=== PATIENT | female | born 1965 | race Caucasian/White ===

== ENCOUNTER 2017-04-24 09:06 | Observation (INO) | payer BC, SELFPAY ==
--- NOTE | 2017-04-19 16:44 | EKG12_ITS ---
Test Reason : PREOP Blood Pressure : / mmHG Vent. Rate : 066 BPM Atrial Rate : 066 BPM P-R Int : 168 ms QRS Dur : 080 ms QT Int : 408 ms P-R-T Axes : 061 032 041 degrees QTc Int : 427 ms Sinus rhythm with occasional Premature ventricular complexes Possible Left atrial enlargement Borderline ECG Confirmed by JACOB MIRANDA, CASSANDRA ([id number]), script editor ROSCOE CORTES ([id number]) on 04/23/2017 2:55:50 PM Referred By: Justo Menjivar Confirmed By:CASSANDRA JAMES MD
[2017-04-24] VITALS (12 sets, daily range): BP systolic 144–164; BP diastolic 81–103; PULSE 90–122; RESP 12–18; TEMP 36.3–37.5; O2SAT 93–99; BMI 23.2
--- NOTE | 2017-04-24 | IMM_PTH ---
PATIENT: DHIRAJ CORTES LOC: MS2 U#:[id number] AGE/SX: 51/F [place] [facility] [place] RE04/24/[address]: Dr. Justo Menjivar MD : 1965 BED: 1 DIS: 04/24/2017 SPEC #: [id number] RECD: 04/26/17 12:43 STATUS: NICOLA REQ #: [id number] DUSTY: 04/24/17 00:[address]: Justo Menjivar DEPT: IMMUNOHISTOCHEMISTRY RECD BY: Nicole Riggins ENTERED: 04/26/17 12:44 SP TYPE: IMMUNO OTHR DR: Dr. Kirill William MD Tissues: Thyroid gland, NOS Procedures: CK19 (add) GAL-3 (add) HBME (add) CD56 (initial) PHYSICIAN & INSTITUTION [place] [id number] SPECIMEN INFORMATION: Tissue Source: Thyroid Clinical Info: Follicular neoplasm of thyroid Specimen Number: [id number] #7 CPT code: 26072, 41476 x3 METHODOLOGY: Deparaffinized sections of prefer/formalin-fixed tissue or PAP/DQ stained slides are incubated with monoclonal/polyclonal antibodies/oligonucleotide probes. Localization is made via biotin free immunoperoxidase method. Appropriate controls are performed and reacted as expected. Results on target cell population are indicated in the following table: RESULTS: ANTIBODY / CLONE RESULT Block 7 CD56 (123C3.D5) positive HBME1 (HBME-1) positive CK19 (A53-B/A2.26) positive GAL3 (9C4) positive These tests were developed and their performance characteristics determined by [facility]. They may not have been cleared or approved by the U.S. Food and Drug Administration. The FDA has determined that such clearance or approval is not necessary. INTERPRETATION: Thyroid, thyroidectomy: Consistent with follicular adenoma. AM:mendez 05/03/17 Case has been reviewed in consultation with Dr. Rodriguez who concurs with the above diagnosis. IDC:[email or web address]
--- NOTE | 2017-04-24 | THYROID_PTH ---
PATIENT: DHIRAJ CORTES LOC: MS2 U#:[id number] AGE/SX: 51/F [place] [facility] [place] RE04/24/[address]: Dr. Justo Menjivar MD : 1965 BED: 1 DIS: 04/24/2017 SPEC #: [id number] RECD: 04/24/17 14:45 STATUS: NICOLA KIMBLEMarissa #: [id number] DUSTY: 04/24/17 00:[address]: Justo Menjivar DEPT: SURGICAL PATHOLOGY RECD BY: Curtis Prather ENTERED: 04/24/17 14:46 SP TYPE: THYROID OTHR DR: Dr. Kirill William MD Tissues: Thyroid gland, NOS Procedures: Surgery Specimen Level V HEADER OPERATION: Thyroidectomy, total PRE-OP DIAGNOSIS: Follicular neoplasm of thyroid TISSUE SUBMITTED: Total thyroid ? suture in anterior-superior aspect right lobe MICROSCOPIC DIAGNOSIS Thyroid, total thyroidectomy: Follicular adenoma (right lobe). Colloid nodules. Fragments of benign parathyroid tissue. No evidence of malignancy. AM:mendez 05/03/17 COMMENT Immunohistochemistry ([id number]) supports the above diagnosis. This case was reviewed in consultation with Dr. Rivas of [facility]. His complete report is viewable in patient?s EMR. Microscopic sections show a follicular neoplasm consistent with a follicular adenoma with a trabecular growth pattern. There is no evidence of vascular or capsular invasion. Clinical correlation is suggested. Case has been reviewed in consultation with Dr. Rodriguez who concurs with the above diagnosis. IDC:[email or web address] MICROSCOPIC DESCRIPTION Slides are reviewed. GROSS DESCRIPTION Received in fixative is one container labeled with the patient's name and designated total thyroid ? suture in anterior-superior aspect right lobe. The specimen consists of a total thyroidectomy specimen weighing 17.4 gm. No external parathyroid tissue is identified. The right thyroid lobe measures 5.5 x 2.5 x 2.8 cm and left thyroid lobe measures 3.5 x 1.5 x 1.5 cm and the isthmus measures 0.7 x 0.5 x 0.3 cm. Also present in the container is a detached piece of yellow adipose tissue measuring 1.2 x 1 x 0.5 cm. No obvious lymph node tissue is identified in this piece of tissue. The specimen is inked as follows: posterior surface right lobe, left lobe and isthmus ? black, anterior surface right lobe ? blue, isthmus ? yellow and left lobe ? green. Serial sections of the right lobe reveal a worrell, solid nodule occupying most of the right lobe measuring 3 x 2 x 1.5 cm. Sections of the left lobe and isthmus do not reveal any mass lesion. The entire specimen is submitted in 15 cassettes as follows: 1 ? detached piece of tissue, 2 ? isthmus, 3-11 ? right lobe (3 containing most superior portion and 11 containing most inferior portion), 1215 ? left lobe (12 containing most superior portion and 15 containing most inferior portion). / ABDULLAHI:mendez 04/25/17 TC:1 CPT: 41027
[2017-04-24 06:26] LABS: Internal QC Validated? YES +Cl - CLEAR BKGD; Pregnancy, Urine Negative Negative
--- NOTE | 2017-04-24 07:11 | PCM.DC.GS ---
Discharge Diet: Light diet - advance as tolerated - if you have questions about your diet instructions, please talk to you doctor. Discharge Activity: May Not Drive - for 1 week or while taking narcotic pain medicine. May shower in (days): 1 Lifting Restrictions: 10 pounds Call your doctor if your incision/area has: Continuous Slow Oozing, Sudden Increased Bleeding, Increased Pain/ Swelling, Increased Redness, Foul Smelling Discharge Call your doctor if you observe: Fever of 101 or Higher Suture Line Care: Avoid Pulling/Pushing, Avoid Pinching/Bending Additional Dressing/Incision Instructions:: Dressings may be used as needed to protect the incision from clothing Allergies/Adverse Reactions: Allergies No Known Allergies Allergy (Verified 04/17/17 15:27) Medications to take at Discharge citalopram 20 mg tablet 20 mg PO QDAY 04/03/17 sumatriptan 50 mg tablet 50 mg PO ONCE PRN 04/03/17 Hydrocodone Bitart/Apap 5-325 [[place] 5MG-325MG] 1 tablet PO Q6H PRN PRN #10 tablet 04/24/17 Levothyroxine [Synthroid] 100 mcg PO DAILY #90 tab 04/24/17 The following prescriptions were given: Hydrocodone Bitart/Apap 5-325 [[place] 5MG-325MG] 1 tablet PO Q6H PRN PRN #10 tablet PRN Reason: Pain Levothyroxine [Synthroid] 100 mcg PO DAILY #90 tab Primary Care Physician: Kirill William [Primary Care Provider] - Please Follow Up With: Justo Menjivar MD - [phone] When: Call to make an appointment to be seen in about 10 days.
[2017-04-24] MEDS: Bupivacaine Mpf 0.5% 30 ML VIAL (08:58)
--- NOTE | 2017-04-24 09:06 | OP.PCM_ITS ---
Problem List (1) Thyroid nodule Status: Acute Report of Operation Date of Procedure: 04/24/17 Pre-Operative Diagnosis: Suspicious follicular/papillary lesion right thyroid Post-Operative Diagnosis: Same Surgery/Procedure Performed:: Total thyroidectomy Description of Surgical Findings:: Timeout and informed consent was obtained. 51-year-old female was taken the operating room. She was placed upon the table. She underwent general endotracheal intubation and anesthesia. His shoulder roll was placed. Neck was sterilely prepped and draped in routine fashion. A transverse suprasternal incision was created sharp dissection carried down through the substance tissue platysmal flaps are raised sternal strap muscles were incised vertically I dressed the left lobe initially the middle thyroidal vein was secured with harmonic scalpel and the inferior pole was carefully dissected free the inferior parathyroid identified having then been able to elevate the thyroid and then address the superior pole on the left secured the superior pole vessels with harmonic scalpel hemoclips were used where indicated the gland was rotated anteriorly both the inferior end. Superior parathyroid were absolutely identified. The course of the recurrent laryngeal nerve identified. Dissection was performed in the posterior aspect of the thyroid great care was taken in transecting the ligament of Maurice as the recurrent nerve was quite close. Did sharp dissection with scalpel dissection to the final release. The gland was then released from the anterior surface of the trachea with harmonic scalpel. Now I addressed the right lobe which much larger than the left. There appear to be a dominant nodule mostly in the mid section. I dressed the superior pole initially on the right. Tediously and carefully the superior pole vessels were identified and secured. The middle thyroidal vein was secured. Then I addressed the inferior pole vessels. The superior and inferior parathyroid on the right were also cleanly identified and carefully preserved. The recurrent ventral nerve was identified and protected. The gland was dissected off the ligament of [place] and anterior surface of the trachea. There did not appear to be any muscular or soft tissue invasion. Completely released the gland I carefully inspected both sides of the neck were able to see L4 parathyroids recurrent nerve. By visual inspection careful blunt dissection and palpation I could not detect any enlarged lymph nodes. I did take some inferior pre-tracheal tissue in the region of the thymus with harmonic scalpel and submitted that with a specimen as well. Hemostasis was intact. Fibular was placed in each side of the neck hemostasis was nicely intact the strap muscles were approximated vertically with interrupted 3-0 Vicryl. The platysma was proximally the same. Skin edges present interrupted 5 -0 Vicryl subdermal stitches. The rani-incisional area was anesthetized with 0.5% Marcaine a total of 15 cc was used. Dermabond was applied followed by Telfa and tape dressings. Sponge instrument and needle counts were reported to the surgeon to be correct. Blood loss minimal. Specimens include a thyroid plus some treatment thyroidal fibrofatty tissue. Drains none. Blood loss very minimal. Justo Menjivar M.D., F.A.C.S.
[2017-04-24] MEDS: Lactated Ringers 1,000 ML 30 ML IV (10:36)
[2017-04-24] MEDS: Calcium Carbonate 500 MG Tablet 1000 MG PO ×2 (12:11→17:07)
[2017-04-24] MEDS: Citalopram 20 MG Tablet PO (12:11)
[2017-04-24] MEDS: HYDROcodone Bitartrate/Apap 5/325 Tablet PO (17:07)
--- NOTE | 2017-04-24 17:32 | PCM.PN.BLA ---
Progress Note Pt without complaint Neck supple [place] neg Will discharge home with office followup
== END 2017-04-24 18:17 | disposition home or self-care (01) ==
LOC: SDC 12:23 → MS2 12:23
PROVIDERS: Anesthesiology; Admitting Provider Surgery; Family Provider Family Medicine; PCP Family Medicine; Visit Provider Surgery
PROC: (CPT 60240; principal; 2017-04-24 07:00)
DX: D34 Benign neoplasm of thyroid gland (principal); E04.1 Nontoxic single thyroid nodule; K21.9 Gastro-esophageal reflux disease without esophagitis; F32.9 Major depressive disorder, single episode, unspecified; G43.909 Migraine, unspecified, not intractable, without status migrainosus; Z87.891 Personal history of nicotine dependence; Z79.899 Other long term (current) drug therapy
CPT/HCPCS: 60240; 81025; 88307; 88341; 88342; 93005; 96374; 99218; J7120; A4216; G0378; G0379; J2405

== ENCOUNTER → 2017-06-25 16:25 | Outpatient (CLI) | payer BC, SELFPAY ==
[2017-06-25 17:48] LABS: Thyroid Stim Hormone (TSH) 3.56 uIU/mL (0.358-3.74)
== END ==
PROVIDERS: Family Provider Family Medicine; PCP Family Medicine; Visit Provider Surgery
DX: D34 Benign neoplasm of thyroid gland (principal)
CPT/HCPCS: 36415; 84443

== ENCOUNTER → 2017-10-19 13:34 | Outpatient (CLI) | payer BC, SELFPAY ==
[2017-10-19 15:37] LABS: Thyroid Stim Hormone (TSH) 2.73 uIU/mL (0.358-3.74)
== END ==
PROVIDERS: Family Provider Family Medicine; PCP Family Medicine; Visit Provider Surgery
DX: D34 Benign neoplasm of thyroid gland (principal)
CPT/HCPCS: 36415; 84443